=== PATIENT | male | born 1965 | race Hispanic/Latino ===

== ENCOUNTER 2020-04-05 21:49 | Inpatient (IN) | payer SELFPAY ==
[2020-04-05] MEDS ORDERED: Ibuprofen 200 MG TAB ONE (22:32)
[2020-04-05] MEDS ORDERED: Ondansetron PF 4 MG/2 ML Vial ONE (22:32)
[2020-04-05 22:52] LABS: #Lymphocytes 0.8 thou/uL (1.20-3.40); #Monocytes 0.4 thou/uL (0.11-0.59); #Neutrophils 5.5 thou/uL (1.40-6.50); %Basophils 0.4 % (0.0-1.0); %Eosinophils 0.1 % (0.0-10.0); %Lymphocytes 12.4 % (21.0-51.0); %Monocytes 6.4 % (0.0-10.0); %Neutrophils 80.8 % (42.0-75.0); Hemoglobin 15.5 g/dL (14.0-18.0); Mean Corpuscular HGB CONC 34.9 g/dL (32.0-36.0); Mean Corpuscular Volume 91.8 fL (78.0-98.0); Mean Platelet Volume 8.6 fL (7.4-10.4); Platelet Count 186 thou/uL (130-400); RBC Distribution Width 12.2 % (11.5-14.5); Red Blood Cell (RBC) Count 4.85 mill/uL (4.70-6.10); White Blood Cell (WBC) Count 6.8 thou/uL (4.8-10.8)
--- NOTE | 2020-04-05 22:54 | RAD ---
Exam: Chest one view HISTORY:Cough. Fever. Diarrhea. COVID positive. Comparison: None FINDINGS: Cardiac silhouette: Normal Aorta: Unremarkable Pulmonary vessels: Normal Costophrenic angles: Clear LUNGS: Multifocal interstitial and alveolar opacities. Pneumothorax: None Osseous abnormalities: None IMPRESSION: Multi lobar COVID pneumonia.
[2020-04-05] MEDS ORDERED: Dexamethasone 10 MG/ML VIAL ONE (23:08)
[2020-04-05 23:14] LABS: ALT (SGPT) 59 U/L (8-55); AST (SGOT) 74 U/L (5-34); Albumin 3.9 g/dL (3.5-5.0); Alkaline Phosphatase 75 U/L (40-110); Anion Gap 17 mmol/L (10-20); BUN (Urea Nitrogen) 7 mg/dL (8.4-25.7); Bilirubin, Total 0.4 mg/dL (0.2-1.2); Calc. Creatinine Clearance 0 mL/min (70-130); Calcium 8.6 mg/dL (7.8-10.44); Carbon Dioxide 20 mmol/L (22-29); Chloride 103 mmol/L (98-107); Globulin 4.2 g/dL (2.4-3.5); Glucose 116 mg/dL (70-105); Potassium 3.8 mmol/L (3.5-5.1); Protein, Total 8.1 g/dL (6.0-8.3); Sodium 136 mmol/L (136-145)
[2020-04-05 23:41] LABS: Bacteria/HPF None Seen HPF (None Seen); Bilirubin Negative (Negative); Blood, Urine Negative (Negative); Clarity Clear (Clear); Glucose, Urine (Dipstick) Normal (Negative); Ketone, Urine 20 mg/dL (Negative); Leukocyte Negative Leu/uL (Negative); Nitrite Negative (Negative); Protein, Urine (Dipstick) 30 mg/dL (Neg-Trace); RBC/HPF 0-3 HPF (0-3); Specific Gravity, Urine 1.006 (1.002-1.036); Squamous Epithelial None Seen HPF (0-3); Urobilinogen Normal mg/dL (Less than 2); WBC/HPF 0-3 HPF (0-3); pH, Urine 6.5 (5.0-9.0)
--- NOTE | 2020-04-06 05:30 | PDOC.HHP ---
Hospitalist HPI - History of Present Illness Shortness of breath History of Present Illness: This is a 55-year-old male patient with no significant past medical history who presents with worsening shortness of breath. He is known to be positive for Covid about a week ago. He notes that his is also Covid positive but asymptomatic. He complains of ongoing cough shortness of breath and fever. Symptoms started about 10 days ago however has acutely become worse thus leading him to come to the ED for further evaluation. On arrival his blood pressure was 126/77, pulse 80, respiratory rate 20, tempe rature 98.7, saturation 95 on 2 L oxygen. His labs showed no significant change of CBC and BMP. Chest x-ray showed multilobar pneumonia likely due to Covid. He was given dexamethasone, Levaquin, normal saline 1 L ibuprofen ondansetron. Hospitalist team consulted for admission Hospitalist ROS - Review of Systems Constitutional: reports: fever, weakness, malaise. denies: chills, sweats Respiratory: reports: cough, shortness of breath, SOB with excertion. denies: hemoptysis Cardiovascular: denies: chest pain, palpitations, orthopnea, paroxysmal noc. dyspnea Gastrointestinal: denies: nausea, vomiting, abdominal pain, constipation Genitourinary: denies: dysuria, frequency, incontinence Neurological: denies: weakness, numbness, incoordination All other systems reviewed; all pertinent +/- noted in HPI/Subj - Medication Medications: Medications: Currently refer to ambulatory list. Allergies: No known drug allergies Hospitalist History - Past Medical History Cardiac: reports: no pertinent history - Past Surgical History Past Surgical History: reports: no pertinent history - Family History Family History: reports: no pertinent history - Social History Smoking Status: Never smoker Alcohol: reports: None Living Situation: With Family - Exam General Appearance: awake alert General - other findings: In no acute distress Eye: PERRL, anicteric sclera ENT: normocephalic atraumatic Neck: supple, symmetric, no JVD Heart: RRR, no murmur, no gallops, no rubs Heart - other findings: On 2 L nasal cannula Respiratory - other findings: Coarse breath sounds bilaterally, scattered wheezes Gastrointestinal: soft, non-tender, non-distended, normal bowel sounds Extremities: no cyanosis, no clubbing, no edema Neurological: cranial nerve grossly intact, no focal deficits Psychiatric: normal affect, A&O x 3 Hospitalist Results - Labs Result Diagrams: 04/05/20 22:35 04/05/20 22:34 Lab results: WBC 6.8 thou/uL (4.8-10.8) 04/05/20 22:35 Hgb 15.5 g/dL (14.0-18.0) 04/05/20 22:35 Hct 44.5 % (42.0-52.0) 04/05/20 22:35 MCV 91.8 fL (78.0-98.0) 04/05/20 22:35 Plt Count 186 thou/uL (130-400) 04/05/20 22:35 Neutrophils % 80.8 % (42.0-75.0) H 04/05/20 22:35 Sodium 136 mmol/L (136-145) 04/05/20 22:34 Potassium 3.8 mmol/L (3.5-5.1) 04/05/20 22:34 Chloride 103 mmol/L (98-107) 04/05/20 22:34 Carbon Dioxide 20 mmol/L (22-29) L 04/05/20 22:34 BUN 7 mg/dL (8.4-25.7) L 04/05/20 22:34 Creatinine 0.86 mg/dL (0.7-1.3) 04/05/20 22:34 Glucose 116 mg/dL (70-105) H 04/05/20 22:34 Lactic Acid 1.1 mmol/L (0.5-2.2) 04/05/20 22:34 Calcium 8.6 mg/dL (7.8-10.44) 04/05/20 22:34 Total Bilirubin 0.4 mg/dL (0.2-1.2) 04/05/20 22:34 AST 74 U/L (5-34) H 04/05/20 22:34 ALT 59 U/L (8-55) H 04/05/20 22:34 Alkaline Phosphatase 75 U/L (40-110) 04/05/20 22:34 Serum Total Protein 8.1 g/dL (6.0-8.3) 04/05/20 22:34 Albumin 3.9 g/dL (3.5-5.0) 04/05/20 22:34 Urine Ketones 20 mg/dL (Negative) A 04/05/20 23:13 Urine Blood Negative (Negative) 04/05/20 23:13 Urine Nitrite Negative (Negative) 04/05/20 23:13 Ur Leukocyte Esterase Negative Jael/uL (Negative) 04/05/20 23:13 Urine RBC 0-3 HPF (0-3) 04/05/20 23:13 Urine WBC 0-3 HPF (0-3) 04/05/20 23:13 Ur Squamous Epith Cells None Seen HPF (0-3) 04/05/20 23:13 Urine Bacteria None Seen HPF (None Seen) 04/05/20 23:13 Hospitalist H&P A/P - Plan Plan: This a 55-year-old male patient with no significant past medical history presenting with worsening cough and shortness of breath in the setting of Covid pneumonia. Acute hypoxic respiratory failure The setting of Covid pneumonia As needed oxygen Pulmonology consult if indicated. Pneumonia due to Covid Likely out of remdesivir window Start vitamin C and steroids continue steroids Monitor CRP ferritin D-dimer Anticoagulate if indicated. VT prophylaxisLovenox CODE STATUSfull
[2020-04-06] MEDS: Dexamethasone 4 mg/ml Vial SLOW IVP SCH (08:28)
[2020-04-06] MEDS ORDERED: FLU VACC QS2020-21(6MOS UP)/PF 60 MCG/0.5 ML SYRINGE IM ONE (09:00)
[2020-04-06] MEDS ORDERED: Enoxaparin Sodium 40 MG/0.4 ML SYRINGE SC SCH (09:00)
[2020-04-06] MEDS ORDERED: guaiFENesin/Codeine 200 mg/20 mg 10 ml Cup PO PRN (16:20)
[2020-04-06] MEDS ORDERED: Ondansetron PF 4 MG/2 ML Vial IVP PRN (16:22)
[2020-04-06] MEDS ORDERED: Acetaminophen 325 MG TAB PO PRN (16:22)
[2020-04-06] MEDS ORDERED: Docusate 100 MG CAP PO PRN (16:23)
--- NOTE | 2020-04-06 16:29 | PDOC.BPN ---
- Brief Progress Note Assuming care: Patient was admitted this morning for COVID-19 pneumonia. Patient is a pleasant 55 years old gentleman without significant past medical history, who presented to ED with complaint of dyspnea. He was tested positive for Covid about a week ago. Initial work-up in the ED including chest x-ray show multi lobar pneumonia consistent with COVID-19. He is remained afebrile since admission. Blood pressure stable. He currently tolerating 2 L via nasal cannula. He is currently on Decadron. We will add vitamin C/D/Zinxw. He is out of the window for convalescent plasma/remdesivir given his duration of symptoms. We will continue with supportive cares. Patient was encouraged to prone when able and IS. Follow-up a.m. labs. Patient was seen examined at bedside.
[2020-04-06] MEDS: Benzonatate 100 MG CAP PO SCH (20:23)
[2020-04-06] MEDS: Temazepam 15 MG CAP PO SCH (20:23)
[2020-04-06] MEDS: Enoxaparin Sodium 40 MG/0.4 ML SYRINGE SC SCH (20:24)
[2020-04-07 07:33] LABS: Anion Gap 12 mmol/L (10-20); BUN (Urea Nitrogen) 12 mg/dL (8.4-25.7); Calc. Creatinine Clearance 106 mL/min (70-130); Calcium 8.4 mg/dL (7.8-10.44); Carbon Dioxide 23 mmol/L (22-29); Chloride 107 mmol/L (98-107); Glucose 164 mg/dL (70-105); Potassium 4.1 mmol/L (3.5-5.1); Sodium 138 mmol/L (136-145)
[2020-04-07 07:39] LABS: Hemoglobin 14.4 g/dL (14.0-18.0); Mean Corpuscular HGB CONC 34.2 g/dL (32.0-36.0); Mean Corpuscular Hemoglobin 31.7 pg (27.0-31.0); Mean Corpuscular Volume 92.7 fL (78.0-98.0); Mean Platelet Volume 9.3 fL (7.4-10.4); Platelet Count 224 thou/uL (130-400); RBC Distribution Width 12.1 % (11.5-14.5); Red Blood Cell (RBC) Count 4.55 mill/uL (4.70-6.10); White Blood Cell (WBC) Count 17.2 thou/uL (4.8-10.8)
[2020-04-07] MEDS: Cholecalciferol (Vitamin D3) 400 UNITS TAB PO SCH (07:58)
[2020-04-07] MEDS: Enoxaparin Sodium 40 MG/0.4 ML SYRINGE SC SCH ×2 (07:59→20:05)
[2020-04-07] MEDS: Zinc Sulfate 220 MG CAP PO SCH (07:59)
[2020-04-07] MEDS: Benzonatate 100 MG CAP PO SCH ×3 (07:59→20:06)
[2020-04-07] MEDS: Dexamethasone 4 mg/ml Vial SLOW IVP SCH (07:59)
[2020-04-07] MEDS: Ascorbic Acid 500 mg Chewable Tablet PO SCH (07:59)
[2020-04-07 09:26] LABS: Band 1 % (5-11); Eosinophils 1 % (0-10); Lymphocytes 9 % (21-51); MDiff Complete? YES; Monocytes 4 % (0-10); Neutrophil 85 % (42-75); Platelet Morphology Comment Appears Adequate; RBC Morphology Normal
--- NOTE | 2020-04-07 15:11 | PDOC.HOSPP ---
- Subjective Encounter Date: 04/07/20 (f/u acute resp failure) Encounter Time: 15:09 Subjective: Pt reports he is feeling better - he was admitted early yesterday for covid pneumonia. he continues to cough, but is currently on room air with normal sats. he denies any new sx. - Objective Vital Signs & Weight: Vital Signs (12 hours) Temp Pulse Resp BP Pulse Ox 04/07/20 11:00 98.2 F 71 20 126/67 97 04/07/20 08:00 98.2 F 66 20 114/71 92 L Weight Weight 154 lb 9.6 oz I&O: 04/06/20 04/07/20 04/08/20 06:59 06:59 06:59 Intake Total 200 1581.5 Output Total 250 Balance -50 1581.5 Result Diagrams: 04/07/20 06:21 04/07/20 06:21 Hospitalist ROS - Medication Medications: Active Medications Generic Name Dose Route Start Last Admin Trade Name Freq PRN Reason Stop Dose Admin Ascorbic Acid 1,000 mg 04/07/20 09:00 04/07/20 07:59 Ascorbic Acid 500 Mg Chewable Tablet PO 1,000 mg DAILY KIM Administration Benzonatate 100 mg 04/06/20 21:00 04/07/20 14:52 Benzonatate 100 Mg Cap PO 100 mg TID KIM Administration Cholecalciferol 400 units 04/07/20 09:00 04/07/20 07:58 Cholecalciferol (Vitamin D3) 400 Units Tab PO 400 units DAILY KIM Administration Dexamethasone 8 mg 04/06/20 09:00 04/07/20 07:59 Dexamethasone 4 Mg/Ml Vial SLOW IVP 8 mg DAILY KIM Administration Enoxaparin Sodium 40 mg 04/06/20 21:00 04/07/20 07:59 Enoxaparin Sodium 40 Mg/0.4 Ml Syringe SC 40 mg BID KIM Administration Guaifenesin/Codeine Phosphate 10 ml 04/06/20 16:20 04/06/20 17:45 Guaifenesin/Codeine 200 Mg/20 Mg 10 Ml Cup PO 10 ml Q6H PRN Administration Cough Temazepam 15 mg 04/06/20 21:00 04/06/20 20:23 Temazepam 15 Mg Cap PO 15 mg HS KIM Administration Zinc Sulfate 220 mg 04/07/20 09:00 04/07/20 07:59 Zinc Sulfate 220 Mg Cap PO 220 mg DAILY KIM Administration - Exam General Appearance: NAD Heart: RRR, no murmur Respiratory - other findings: some basilar rales bilateral, no audible wheezing/rhonchi Gastrointestinal: soft, non-tender, non-distended, normal bowel sounds Extremities: no cyanosis, no clubbing, no edema Psychiatric: normal affect Hosp A/P (1) Pneumonia due to COVID-19 virus Code(s): U07.1 - COVID-19; J12.82 - PNEUMONIA DUE TO CORONAVIRUS DISEASE 2019 Status: Acute - Plan Acute respiratory failure secondary to COVID pneumonia - overall improved - continue steroids and supplements - monitor overnight and assess for any oxygen needs - recheck inflammatory markers - if remains improved tomorrow, anticipate d/c to home dvt prophy - lovenox gi prophy - famotidine while on steroids code status full reviewed plan of care with patient, no questions or further needs at end of eval
[2020-04-07] MEDS: Temazepam 15 MG CAP PO SCH (20:06)
[2020-04-08 07:13] LABS: Anion Gap 14 mmol/L (10-20); BUN (Urea Nitrogen) 15 mg/dL (8.4-25.7); CRP (Inflammatory) 2.93 mg/dL (= or < 0.5); Calc. Creatinine Clearance 113 mL/min (70-130); Calcium 8.2 mg/dL (7.8-10.44); Carbon Dioxide 23 mmol/L (22-29); Chloride 109 mmol/L (98-107); Glucose 152 mg/dL (70-105); Potassium 4.1 mmol/L (3.5-5.1); Sodium 142 mmol/L (136-145)
[2020-04-08] MEDS: Benzonatate 100 MG CAP PO SCH ×3 (08:32→21:51)
[2020-04-08] MEDS: Dexamethasone 4 mg/ml Vial SLOW IVP SCH (08:32)
[2020-04-08] MEDS: Cholecalciferol (Vitamin D3) 400 UNITS TAB PO SCH (08:32)
[2020-04-08] MEDS: Ascorbic Acid 500 mg Chewable Tablet PO SCH (08:32)
[2020-04-08] MEDS: Zinc Sulfate 220 MG CAP PO SCH (08:32)
[2020-04-08] MEDS: Enoxaparin Sodium 40 MG/0.4 ML SYRINGE SC SCH ×2 (08:33→21:52)
[2020-04-08 08:56] LABS: Band 4 % (5-11); Hemoglobin 14.5 g/dL (14.0-18.0); Lymphocytes 4 % (21-51); MDiff Complete? YES; Mean Corpuscular HGB CONC 33.9 g/dL (32.0-36.0); Mean Corpuscular Hemoglobin 31.6 pg (27.0-31.0); Mean Corpuscular Volume 93.2 fL (78.0-98.0); Mean Platelet Volume 9.1 fL (7.4-10.4); Monocytes 5 % (0-10); Neutrophil 87 % (42-75); Platelet Count 266 thou/uL (130-400); Platelet Morphology Comment Appears Adequate; RBC Distribution Width 12.4 % (11.5-14.5); RBC Morphology Normal; Red Blood Cell (RBC) Count 4.59 mill/uL (4.70-6.10); White Blood Cell (WBC) Count 20.6 thou/uL (4.8-10.8)
--- NOTE | 2020-04-08 10:25 | PDOC.HOSPP ---
- Subjective Encounter Date: 04/08/20 (f/u covid pneumonia) Encounter Time: 10:23 Subjective: Pt reports feeling the same as yesterday - admitted for resp failure due to covid pneumonia. He has some chest pain with coughing. Denies any other pain/n/v. while I was in the room - 90% on room air at rest. - Objective Vital Signs & Weight: Vital Signs (12 hours) Temp Pulse Resp BP Pulse Ox 04/08/20 08:00 98.0 F 59 L 20 126/69 92 L Weight Weight 154 lb 9.6 oz I&O: 04/07/20 04/08/20 04/09/20 06:59 06:59 06:59 Intake Total 1581.5 800 Balance 1581.5 800 Result Diagrams: 04/08/20 05:57 04/08/20 05:57 Hospitalist ROS - Medication Medications: Active Medications Generic Name Dose Route Start Last Admin Trade Name Freq PRN Reason Stop Dose Admin Ascorbic Acid 1,000 mg 04/07/20 09:00 04/08/20 08:32 Ascorbic Acid 500 Mg Chewable Tablet PO 1,000 mg DAILY KIM Administration Benzonatate 100 mg 04/06/20 21:00 04/08/20 08:32 Benzonatate 100 Mg Cap PO 100 mg TID KIM Administration Cholecalciferol 400 units 04/07/20 09:00 04/08/20 08:32 Cholecalciferol (Vitamin D3) 400 Units Tab PO 400 units DAILY KIM Administration Dexamethasone 8 mg 04/06/20 09:00 04/08/20 08:32 Dexamethasone 4 Mg/Ml Vial SLOW IVP 8 mg DAILY KIM Administration Enoxaparin Sodium 40 mg 04/06/20 21:00 04/08/20 08:33 Enoxaparin Sodium 40 Mg/0.4 Ml Syringe SC 40 mg BID KIM Administration Guaifenesin/Codeine Phosphate 10 ml 04/06/20 16:20 04/06/20 17:45 Guaifenesin/Codeine 200 Mg/20 Mg 10 Ml Cup PO 10 ml Q6H PRN Administration Cough Temazepam 15 mg 04/06/20 21:00 04/07/20 20:06 Temazepam 15 Mg Cap PO 15 mg HS KIM Administration Zinc Sulfate 220 mg 04/07/20 09:00 04/08/20 08:32 Zinc Sulfate 220 Mg Cap PO 220 mg DAILY KIM Administration - Exam General Appearance: NAD Heart: RRR, no murmur Respiratory: no wheezes, no rales, no ronchi Respiratory - other findings: diminished breath sounds at the bases Gastrointestinal: soft, non-tender, non-distended, normal bowel sounds Psychiatric: normal affect Hosp A/P (1) Pneumonia due to COVID-19 virus Code(s): U07.1 - COVID-19; J12.82 - PNEUMONIA DUE TO CORONAVIRUS DISEASE 2019 Status: Acute - Plan Acute respiratory failure secondary to COVID pneumonia - overall improved - continue steroids and supplements - leukocytosis c/w steroid effect - wean oxygen as tolerated - inflammatory markers checked and improved anticipate discharge soon when no oxygen requirement dvt prophy - lovenox gi prophy - famotidine while on steroids code status full reviewed plan of care with patient, no questions or further needs at end of eval
[2020-04-08] MEDS: Temazepam 15 MG CAP PO SCH (21:52)
[2020-04-09 06:52] LABS: Hemoglobin 14.5 g/dL (14.0-18.0); Mean Corpuscular HGB CONC 33.4 g/dL (32.0-36.0); Mean Corpuscular Hemoglobin 31.1 pg (27.0-31.0); Mean Corpuscular Volume 92.9 fL (78.0-98.0); Mean Platelet Volume 8.6 fL (7.4-10.4); Platelet Count 275 thou/uL (130-400); RBC Distribution Width 12.2 % (11.5-14.5); Red Blood Cell (RBC) Count 4.68 mill/uL (4.70-6.10); White Blood Cell (WBC) Count 14.5 thou/uL (4.8-10.8)
[2020-04-09 07:10] LABS: Anion Gap 13 mmol/L (10-20); BUN (Urea Nitrogen) 17 mg/dL (8.4-25.7); CRP (Inflammatory) 1.95 mg/dL (= or < 0.5); Calc. Creatinine Clearance 115 mL/min (70-130); Calcium 8.1 mg/dL (7.8-10.44); Carbon Dioxide 24 mmol/L (22-29); Chloride 108 mmol/L (98-107); Glucose 169 mg/dL (70-105); Potassium 4.1 mmol/L (3.5-5.1); Sodium 141 mmol/L (136-145)
[2020-04-09] MEDS: Enoxaparin Sodium 40 MG/0.4 ML SYRINGE SC SCH ×2 (07:52→21:00)
[2020-04-09] MEDS: Zinc Sulfate 220 MG CAP PO SCH (07:52)
[2020-04-09] MEDS: Cholecalciferol (Vitamin D3) 400 UNITS TAB PO SCH (07:52)
[2020-04-09] MEDS: Ascorbic Acid 500 mg Chewable Tablet PO SCH (07:52)
[2020-04-09] MEDS: Dexamethasone 4 mg/ml Vial SLOW IVP SCH (07:53)
[2020-04-09] MEDS: Benzonatate 100 MG CAP PO SCH ×3 (07:53→20:30)
[2020-04-09 08:54] LABS: Band 13 % (5-11); Lymphocytes 7 % (21-51); MDiff Complete? YES; Monocytes 4 % (0-10); Neutrophil 68 % (42-75); Platelet Morphology Comment Appears Adequate; Polychromasia SLIGHT = 2-3 cells (100X) (0-2/hpf); Reactive Lymphocytes 8 % (0-10)
[2020-04-09] MEDS ORDERED: Guaifenesin DM 100-10/5 ML UDCUP PO PRN (09:49)
--- NOTE | 2020-04-09 09:50 | PDOC.HOSPP ---
- Subjective Encounter Date: 04/09/20 (f/u resp failure) Encounter Time: 09:49 Subjective: Pt admitted on Apr 06 for acute respiratory failure secondary to Covid pneumonia. He was improved 2 days ago, however return to oxygen yesterday. Pt reports his breathing feels better today. He continues to cough. No recent bm - last one 3 days ago. He denies any n/v - Objective Vital Signs & Weight: Vital Signs (12 hours) Temp Pulse Resp BP Pulse Ox 04/09/20 09:02 97.9 F 54 L 20 156/85 H 96 04/09/20 05:24 97.7 F 60 18 128/73 96 04/09/20 05:00 97.7 F 60 18 128/73 96 04/09/20 01:28 97.3 F L 60 20 150/75 H 99 04/09/20 01:00 97.3 F L 60 20 150/75 H 99 04/08/20 22:12 97.9 F 60 18 163/77 H 95 Weight Weight 154 lb 9.6 oz I&O: 04/08/20 04/09/20 04/10/20 06:59 06:59 06:59 Intake Total 800 1100 240 Balance 800 1100 240 Result Diagrams: 04/09/20 06:29 04/09/20 06:29 Hospitalist ROS - Medication Medications: Active Medications Generic Name Dose Route Start Last Admin Trade Name Minaq PRN Reason Stop Dose Admin Ascorbic Acid 1,000 mg 04/07/20 09:00 04/09/20 07:52 Ascorbic Acid 500 Mg Chewable Tablet PO 1,000 mg DAILY KIM Administration Benzonatate 100 mg 04/06/20 21:00 04/09/20 07:53 Benzonatate 100 Mg Cap PO 100 mg TID KIM Administration Cholecalciferol 400 units 04/07/20 09:00 04/09/20 07:52 Cholecalciferol (Vitamin D3) 400 Units Tab PO 400 units DAILY KIM Administration Dexamethasone 8 mg 04/06/20 09:00 04/09/20 07:53 Dexamethasone 4 Mg/Ml Vial SLOW IVP 8 mg DAILY KIM Administration Enoxaparin Sodium 40 mg 04/06/20 21:00 04/09/20 07:52 Enoxaparin Sodium 40 Mg/0.4 Ml Syringe SC 40 mg BID KIM Administration Guaifenesin/Codeine Phosphate 10 ml 04/06/20 16:20 04/06/20 17:45 Guaifenesin/Codeine 200 Mg/20 Mg 10 Ml Cup PO 10 ml Q6H PRN Administration Cough Temazepam 15 mg 04/06/20 21:00 04/08/20 21:52 Temazepam 15 Mg Cap PO 15 mg HS KIM Administration Zinc Sulfate 220 mg 04/07/20 09:00 04/09/20 07:52 Zinc Sulfate 220 Mg Cap PO 220 mg DAILY KIM Administration - Exam General Appearance: NAD Heart: RRR, no murmur Respiratory: no wheezes, no rales, no ronchi Respiratory - other findings: decreased breath sounds at bilateral bases Gastrointestinal: soft, non-tender, non-distended, normal bowel sounds, no palp able masses Extremities: no cyanosis, no clubbing, no edema Psychiatric: normal affect Hosp A/P (1) Acute respiratory failure due to COVID-19 Code(s): U07.1 - COVID-19; J96.00 - ACUTE RESPIRATORY FAILURE, UNSP W HYPOXIA OR HYPERCAPNIA Status: Acute (2) Pneumonia due to COVID-19 virus Code(s): U07.1 - COVID-19; J12.82 - PNEUMONIA DUE TO CORONAVIRUS DISEASE 2019 Status: Acute (3) Constipation Code(s): K59.00 - CONSTIPATION, UNSPECIFIED Status: Acute - Plan Acute respiratory failure secondary to COVID pneumonia - overall improved - continue steroids and supplements - leukocytosis improved and c/w steroid effect - wean oxygen as tolerated - inflammatory markers checked and 2 of 3 are worse today. Will continue to trend. Constipation - bowel meds - scheduled and prn anticipate discharge soon when no oxygen requirement - oxygen lowered to 1.5 L - titrate as able dvt prophy - lovenox gi prophy - famotidine while on steroids code status full reviewed plan of care with patient, no questions or further needs at end of eval
[2020-04-09] MEDS ORDERED: Polyethylene Glycol 3350 17 GM Packet PO SCH (10:15)
[2020-04-09] MEDS: Temazepam 15 MG CAP PO SCH (20:30)
[2020-04-09] MEDS: Docusate 100 MG CAP PO SCH (20:30)
[2020-04-10 06:38] LABS: Hemoglobin 15.1 g/dL (14.0-18.0); Mean Corpuscular HGB CONC 33.3 g/dL (32.0-36.0); Mean Corpuscular Hemoglobin 30.7 pg (27.0-31.0); Mean Platelet Volume 8.6 fL (7.4-10.4); Platelet Count 312 thou/uL (130-400); Red Blood Cell (RBC) Count 4.91 mill/uL (4.70-6.10); White Blood Cell (WBC) Count 12.3 thou/uL (4.8-10.8)
[2020-04-10 06:51] LABS: Band 3 % (5-11); Lymphocytes 16 % (21-51); MDiff Complete? YES; Monocytes 8 % (0-10); Neutrophil 73 % (42-75); Platelet Morphology Comment Appears Adequate; RBC Morphology Normal
[2020-04-10] MEDS: Zinc Sulfate 220 MG CAP PO SCH (07:49)
[2020-04-10] MEDS: Cholecalciferol (Vitamin D3) 400 UNITS TAB PO SCH (07:49)
[2020-04-10] MEDS: Dexamethasone 4 mg/ml Vial SLOW IVP SCH (07:49)
[2020-04-10] MEDS: Polyethylene Glycol 3350 17 GM Packet PO SCH (07:49)
[2020-04-10] MEDS: Docusate 100 MG CAP PO SCH ×2 (07:50→20:32)
[2020-04-10] MEDS: Ascorbic Acid 500 mg Chewable Tablet PO SCH (07:50)
[2020-04-10] MEDS: Benzonatate 100 MG CAP PO SCH ×3 (07:50→20:32)
[2020-04-10] MEDS: Enoxaparin Sodium 40 MG/0.4 ML SYRINGE SC SCH ×2 (09:05→20:32)
--- NOTE | 2020-04-10 13:53 | RAD ---
Exam: Chest one view HISTORY:Shortness of breath Comparison: 04/05/2020 FINDINGS: Cardiac silhouette: Normal Aorta: Unremarkable Pulmonary vessels: Normal Costophrenic angles: Clear LUNGS: Persistent multi lobar interstitial and alveolar opacities. Pneumothorax: None Osseous abnormalities: None IMPRESSION: Persistent multi lobar interstitial and alveolar opacities. Correlate for COVID pneumonia .
[2020-04-10] MEDS: Temazepam 15 MG CAP PO SCH (20:32)
--- NOTE | 2020-04-10 23:15 | PDOC.HOSPP ---
- Subjective Encounter Date: 04/10/20 Encounter Time: 14:20 Subjective: Patient seen and examined for respiratory failure due to COVID 19 pneumonia. Denies any fever. Short of breath on [id number] exertion. Minimal productive cough. - Objective Vital Signs & Weight: Weight Weight 154 lb 9.6 oz I&O: 04/09/20 04/10/20 04/11/20 06:59 06:59 06:59 Intake Total 1100 1070 840 Balance 1100 1070 840 Result Diagrams: 04/10/20 05:54 04/09/20 06:29 Additional Labs: Abnormal Lab Results - Last 48 hrs 04/09/20 06:29: Chloride 108 H, C-Reactive Protein 1.95 H 04/09/20 06:29: Ferritin 1044.50 H 04/09/20 06:29: WBC 14.5 H, RBC 4.68 L, MCH 31.1 H, Band Neuts % (Manual) 13 H, Lymphocytes % (Manual) 7 L 04/09/20 06:29: D-Dimer 0.52 H 04/10/20 05:54: C-Reactive Protein 0.86 H 04/10/20 05:54: WBC 12.3 H, Band Neuts % (Manual) 3 L, Lymphocytes % (Manual) 16 L Microbiology - Entire Visit 04/05/20 23:13 Urine voided Urine Culture - Final NO GROWTH AT 36 HOURS 04/05/20 22:34 Venous blood - Left Arm Blood Culture - Preliminary NO GROWTH AT 48 HOURS 04/05/20 22:32 Venous blood - Right Hand Blood Culture - Preliminary NO GROWTH AT 48 HOURS Radiology Reviewed by me: Yes (Chest x-raypersistent pneumonia) Hospitalist ROS - Review of Systems Constitutional: reports: weakness. denies: fever, chills, sweats, malaise, other Gastrointestinal: denies: nausea, vomiting, abdominal pain, diarrhea, constipa tion, melena, hematochezia, other - Medication Medications: Active Medications Generic Name Dose Route Start Last Admin Trade Name Freq PRN Reason Stop Dose Admin Ascorbic Acid 1,000 mg 04/07/20 09:00 04/10/20 07:50 Ascorbic Acid 500 Mg Chewable Tablet PO 1,000 mg DAILY KIM Administration Benzonatate 100 mg 04/06/20 21:00 04/10/20 20:32 Benzonatate 100 Mg Cap PO 100 mg TID KIM Administration Cholecalciferol 400 units 04/07/20 09:00 04/10/20 07:49 Cholecalciferol (Vitamin D3) 400 Units Tab PO 400 units DAILY KIM Administration Dexamethasone 8 mg 04/06/20 09:00 04/10/20 07:49 Dexamethasone 4 Mg/Ml Vial SLOW IVP 8 mg DAILY KIM Administration Docusate Sodium 100 mg 04/09/20 21:00 04/10/20 20:32 Docusate 100 Mg Cap PO 100 mg BID KIM Administration Enoxaparin Sodium 40 mg 04/06/20 21:00 04/10/20 20:32 Enoxaparin Sodium 40 Mg/0.4 Ml Syringe SC 40 mg BID KIM Administration Polyethylene Glycol 17 gm 04/10/20 09:00 04/10/20 07:49 Polyethylene Glycol 3350 17 Gm Packet PO 17 gm DAILY KIM Administration Temazepam 15 mg 04/06/20 21:00 04/10/20 20:32 Temazepam 15 Mg Cap PO 15 mg HS KIM Administration Zinc Sulfate 220 mg 04/07/20 09:00 04/10/20 07:49 Zinc Sulfate 220 Mg Cap PO 220 mg DAILY KIM Administration - Exam General Appearance: ill appearing Eye: PERRL ENT: normocephalic atraumatic, no oropharyngeal lesions Neck: supple, symmetric, no JVD Heart: RRR, no gallops, no rubs, normal peripheral pulses Respiratory: no wheezes, normal chest expansion, rales, rhonchi, tachypneic Gastrointestinal: soft, normal bowel sounds, no guarding, no rigidity Extremities: no cyanosis, no clubbing Neurological: no new deficit Musculoskeletal: generalized weakness Psychiatric: normal affect, A&O x 3 Hosp A/P - Plan DVT proph w/lovenox, DVT proph w/SCDs Severe sepsis/Acute hypoxic respiratory failure due to COVID 19 pneumoniaPOA Constipation Abnormal LFTs probably due to COVID 19 Elevated blood pressure probably due to steroids Plan: Reduce dexamethasone dose to 6 mg daily. Add amlodipine due to elevated blood pressure. Wean O2 as tolerated. Recheck LFTs and ferritin in a.m. His last ferritin was 1044 which was higher than the previous one. His CRP and d-dimer are improving. His chest x-ray showed persistent infiltrate. Will assess for home O2. DC in 24-40 hours if stable. Patient was counseled extensively on COVID 19
[2020-04-10] MEDS ORDERED: cloNIDine 0.1 MG TAB PO PRN (23:19)
[2020-04-11 07:24] VITALS: BP 152/85; TEMP 98
[2020-04-11 07:30] LABS: ALT (SGPT) 102 U/L (8-55); AST (SGOT) 31 U/L (5-34); Albumin 3.3 g/dL (3.5-5.0); Alkaline Phosphatase 63 U/L (40-110); Anion Gap 12 mmol/L (10-20); BUN (Urea Nitrogen) 18 mg/dL (8.4-25.7); Bilirubin, Total 0.5 mg/dL (0.2-1.2); Calc. Creatinine Clearance 115 mL/min (70-130); Calcium 8.4 mg/dL (7.8-10.44); Carbon Dioxide 26 mmol/L (22-29); Chloride 106 mmol/L (98-107); Globulin 3.6 g/dL (2.4-3.5); Glucose 147 mg/dL (70-105); Protein, Total 6.9 g/dL (6.0-8.3); Sodium 140 mmol/L (136-145)
[2020-04-11] MEDS: Zinc Sulfate 220 MG CAP PO SCH (07:50)
[2020-04-11] MEDS: Docusate 100 MG CAP PO SCH (07:50)
[2020-04-11] MEDS: Cholecalciferol (Vitamin D3) 400 UNITS TAB PO SCH (07:51)
[2020-04-11] MEDS: Ascorbic Acid 500 mg Chewable Tablet PO SCH (07:51)
[2020-04-11] MEDS: Benzonatate 100 MG CAP PO SCH (07:51)
[2020-04-11] MEDS: Enoxaparin Sodium 40 MG/0.4 ML SYRINGE SC SCH (07:51)
[2020-04-11] MEDS: Polyethylene Glycol 3350 17 GM Packet PO SCH (07:52)
[2020-04-11 08:10] LABS: Mean Corpuscular Hemoglobin 32.1 pg (27.0-31.0); Mean Corpuscular Volume 91.7 fL (78.0-98.0); Mean Platelet Volume 8.3 fL (7.4-10.4); Platelet Count 338 thou/uL (130-400); Red Blood Cell (RBC) Count 4.99 mill/uL (4.70-6.10); White Blood Cell (WBC) Count 12.4 thou/uL (4.8-10.8)
[2020-04-11 08:12] LABS: Band 6 % (5-11); Lymphocytes 17 % (21-51); MDiff Complete? YES; Monocytes 3 % (0-10); Myelocyte 1 % (0-0); Neutrophil 67 % (42-75); Platelet Morphology Comment Appears Adequate; Polychromasia SLIGHT = 2-3 cells (100X) (0-2/hpf); Reactive Lymphocytes 6 % (0-10)
[2020-04-11] MEDS ORDERED: Dexamethasone 4 mg/ml Vial SLOW IVP SCH (09:00)
[2020-04-11] MEDS ORDERED: Amlodipine 5 MG TAB PO SCH (09:00)
--- NOTE | 2020-04-11 22:04 | PDOC.DS.DS ---
Provider - Provider Date of Admission: 04/06/20 16:23 Date of Discharge: 04/11/20 Admitting Provider: Alex Becerril MD Primary Care Physician: DARCY PCP PROVIDER Course - Hospital Course Hospital Course: Patient is a 55-year-old male with recent diagnosis of COVID-19 presented to the hospital with shortness of breath that started approximately 10 days prior to hospitalization. Please refer to the history and physical for further details. Patient was admitted to the hospital with a diagnosis of acute hypoxic respiratory failure he was started on O2 supplementation along with dexamethasone. Inflammatory markers were monitored. Patient did not qualify for remdesivir. Chest x-ray on admission showed multilobar Covid pneumonia. Repeat chest x-ray on 04/10 was negative for significant changes. He appears stable for discharge. He did not qualify for home oxygen. Final diagnosis: Severe sepsis/Acute hypoxic respiratory failure due to COVID 19 pneumoniaPOA Constipation Abnormal LFTs probably due to COVID 19 Elevated blood pressure probably due to steroids Resuscitation Status: 04/06/20 05:24 Resuscitation Status Routine Resuscitation Status: FULL: Full Resuscitation - Labs Lab Results: 04/11/20 06:35 04/11/20 06:34 Abnormal Lab Results - Last 48 hrs 04/10/20 05:54: C-Reactive Protein 0.86 H 04/10/20 05:54: WBC 12.3 H, Band Neuts % (Manual) 3 L, Lymphocytes % (Manual) 16 L 04/11/20 06:34: ALT 102 H, Albumin 3.3 L, Globulin 3.6 H, Albumin/Globulin Ratio 0.9 L 04/11/20 06:34: Ferritin 704.76 H 04/11/20 06:35: WBC 12.4 H, MCH 32.1 H, Lymphocytes % (Manual) 17 L, Myelocytes % 1 H Microbiology - Entire Visit 04/05/20 22:34 Venous blood - Left Arm Blood Culture - Final NO GROWTH IN 5 DAYS 04/05/20 22:32 Venous blood - Right Hand Blood Culture - Final NO GROWTH IN 5 DAYS 04/05/20 23:13 Urine voided Urine Culture - Final NO GROWTH AT 36 HOURS - Physical Exam Vitals: Weight Weight 154 lb 9.6 oz Physical Exam: The patient was seen and examined on the day of discharge. Plan - Discharge Medications Prescriptions: Amlodipine Besylate [amLODIPine Besylate] 5 mg PO DAILY #30 tablet Dexamethasone 6 mg PO ASDIR #7 tablet Home Medications: Medication Instructions Recorded Confirmed Type Amlodipine Besylate [amLODIPine 5 mg PO DAILY #30 tablet 04/11/20 Rx Besylate] Dexamethasone 6 mg PO ASDIR #7 tablet 04/11/20 Rx Allergies: No Known Allergies Allergy (Verified 04/06/20 01:30) - Discharge Instructions Discharge Instructions:: Take Pepcid 20 mg twice daily for 1 week (over the counter) - Follow up Plan Referrals: [facility] [MD Not on Staff] - 3 Days Parker Mcdonald MD [Active] - Disposition: HOME Quality - Care Measures CORE MEASURES:: N/A
--- NOTE | 2020-04-14 11:15 | EKG ---
Test Reason : SOB Blood Pressure : / mmHG Vent. Rate : 083 BPM Atrial Rate : 083 BPM P-R Int : 164 ms QRS Dur : 104 ms QT Int : 358 ms P-R-T Axes : 015 067 010 degrees QTc Int : 420 ms Normal sinus rhythm Possible Inferior infarct , age undetermined Abnormal ECG Confirmed by JAMES HEREDIA ([id number]), story editor FELIBETRO MUNSON ([id number]) on 04/14/2020 11:15:16 AM Referred By: Confirmed By:JAMES HEREDIA
== END 2020-04-11 11:09 | disposition home or self-care (01) | DRG 871 ==
LOC: ERS 21:49 → T4-A 23:47 → OBSVTOIN 04-06 16:23
PROVIDERS: ADMIT Student in an Organized Health Care Education/Training Program; ATTEND Internal Medicine
PROC: 8E0ZXY6 Isolation (ICD-10-PCS; principal; 2020-04-06)
DX: A41.89 Other specified sepsis (principal); U07.1 COVID-19; J96.01 Acute respiratory failure with hypoxia; J12.82 Pneumonia due to coronavirus disease 2019; R65.20 Severe sepsis without septic shock; K59.00 Constipation, unspecified; R94.5 Abnormal results of liver function studies; R03.0 Elevated blood-pressure reading, without diagnosis of hypertension; T38.0X5A Adverse effect of glucocorticoids and synthetic analogues, initial encounter
CPT/HCPCS: 36415; 36416; 71045; 80048; 80053; 81003; 81015; 82728; 83605; 85007; 85025; 85027; 85379; 86140; 87040; 87086; 93005; 96365; 96366; 96372; 96375; 96376; G0378; J1100; J1650; J1956; J2405